=== PATIENT | female | born 1955 | race Caucasian/White ===

== ENCOUNTER → 2016-12-10 | Outpatient (CLI) | payer BC ==
[~2016-12-10] MED LIST: Calcium; Fish Oil; Juice Plus
[2016-12-10 14:37] VITALS: BP 105/67; PULSE 64; TEMP 36.6; O2SAT 98
--- NOTE | 2016-12-10 15:35 | Radiation Oncology Follow-Up ---
Radiation Oncology Follow-Up Date of Visit Dec 10, 2016. Reason For Visit Annual follow-up Radiation Completion Date 05/07/15 Diagnosis (1) Sarcoma Status: Resolved Onset Date: 12/20/2014 Location: left lower back Histology Subtype: high-grade pleomorphic sarcoma Stage: lll Permanent Comment: Mass left lower back Biopsy 12/10/2014 revealing sarcoma FNA left inguinal node 01/08/2015 benign Wide local excision 01/28/2015 High-grade pleomorphic sarcoma Pathologic stage [id number] Status post completion of radiation therapy 05/07/2015 received 6600 cGy Last Edited By: Lori Vargas on May 20, 2015 10:53 History of Present Illness Ms. Perkins is a 61-year-old female who noted the presence of a small lump in her left lower back. This was described as being the size of a dime. This initially presented as some soreness following exercising. She was seen by her family physician for a small lump that was felt to be compatible with a lipoma. She was a prior history of a lipoma on her left shoulder. She was referred to general surgery and was given the option of watchful waiting versus excision of the lesion. The patient initially chose to proceed with watchful waiting but felt after week or so that the lesion may be getting larger and she returned to see Dr. Mora. On 12/10/2014 a biopsy of a small lesion in the left lower back was performed. Multiple irregular round fragments of tissues were identified. The lesion was clinically described as a well circumscribed mass measuring 1.5 cm in the paraspinal region of the left lower back. The lesion was biopsied but not completely resected. The biopsy reported atypical cellular proliferation consistent with a sarcoma. Case: [id number]. This tissue was sent for a second opinion to [facility] and reported on 12/27/2014. This was described as an epithelioid malignant neoplasm incompletely excised. Pathology #: [id number]. 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 Reexcision was recommended. Patient underwent an MRI of the pelvis on 12/25/2014. This revealed a 2.3 cm soft tissue mass within the left gluteal region immediately posterior to the left SI joint. The lesion was located within the subcutaneous fat with slightly ill-defined margins and slight edema within the surrounding soft tissue. Patient was seen by Dr. Zapata on 12/26/2014 he ordered a PET/CT scan for staging performed on 01/02/2015. This revealed a 3.6 x 2.3 cm well-circumscribed solid mass lesion in the left pre-gluteal fat. This lesion was markedly FDG avid with a maximum SUV of 25.4. This was consistent with the patient's reported history of sarcoma. A mildly FDG avid left inguinal lymph node was seen with maximum SUV of 2.5 and measuring 0.9 x 1.6 cm. Mildly FDG avid left external iliac chain node with a maximum SUV of 2.6 measuring 1.4 x 0.6 cm was noted. A small FDG avid nodule in the left pelvis measured up to 0.7 cm and a maximum SUV of 2.9 was noted. 2 low attenuation hepatic lesions are identified. A 3.1 x 2.6 cm lesion seen in the right lobe and a 2.6 x 1.5 cm lesion in the inferior right lobe are seen but do not demonstrate FDG avidity and her therefore indeterminant. Dr. Zapata arrange for the patient to be seen in referral by Dr. Michael Jessica at [place]. She was seen on 01/04/2015. The patient noted increasing pain since the biopsy and was placed on Bactrim and without improvement a 10 day course of doxycycline and prednisone. Clinically a palpable lymph node was noted in the left inguinal crease. A 3 cm well-healed incision was noted in the left gluteal crease. The underlying mass was firm fixed attached superiorly and appeared to extend superiorly in the gluteal cleft. Because of the uncertainty of the left inguinal lymph node and the impact this could have on treatment options A lymph node biopsy was recommended. This was performed on 01/08/2015. A fine-needle aspiration biopsy was performed and was negative for malignant cells. Accession #: [id number]. This was performed under ultrasound guidance. The slides from [facility] were reviewed at [place] and reported on 01/28/2015. 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 Accession #: [id number]. Patient was seen by Dr. Rahel Lau for surgical evaluation.. The patient's case was presented at the sarcoma tumor Board. The recommendation was given the negative inguinal biopsy to proceed with a surgical resection. The surgery was scheduled for 01/28/2015. Dr. Jessica had noted that the lesion was still growing and appeared inflamed. He agreed with the recommendation of surgical excision followed by adjuvant radiation and consideration of adjuvant chemotherapy. On 01/28/2015 the patient underwent a wide local excision of a left back sarcoma with complex primary skin closure. A large fungating mass was excised to the level of the gluteus mayra fossa. The margins were close on gross evaluation and additional margins were sent. The final pathologic diagnosis remained a sarcoma with vascular differentiation. The submitted margins and subcutaneous tissues showed fibroadipose tissue with no pathologic alteration. The lesion measured 6.0 x 5.5 x 5.0 cm. The margins were negative for sarcoma. However the distance of sarcoma from the closest margin was 0.03 cm. This was the inferomedial margin. Other margins less than 2 cm with the superomedial margin. The mitotic rate was 14/10 high-powered reece. The histologic grade was 3. Necrosis was present involving 15% of the lesion. No lymphovascular invasion was identified. The stage was a pT2b pNx. Accession #: [id number]. The patient return to discuss the surgical findings with Dr. Lau on 02/08/2015. Adjuvant radiation was felt to be recommended and the patient was scheduled to see Dr. Jessica and Dr. Zapata. The patient had a local drain in place on February 10 the patient returned for evaluation and was admitted for IV clindamycin following concern over infection. Patient returned to the surgical oncology outpatient clinic on February 20. There remained greater than 30 mL drainage from the ASTER drain and it was recommended to leave it in place. Additional follow-up studies were recommended. On 02/26/2015 the patient returned to see Dr. Jessica to discuss adjuvant therapy. He recommended adjuvant radiation. A scalp lesion had been removed and was benign. They scheduled her for 3 month follow-up surveillance with repeat MRI of the pelvis and CT scan of the chest. We were asked to see the patient in referral at that time to discuss with her the role of adjuvant radiation. She was treated from 03/19/2015 to 05/07/2015. She received 6600 cGy. Interim History She describes a tightness in the area of previous surgery and radiation. She previously had physical therapy which greatly helped the mild discomfort that she was having. She does have stretching exercises but admits that she does not do these on a regular basis. She is followed closely by Dr. Rahel Lau. She stated she did have a bone marrow evaluation with Dr. Zambrano. There were findings of the previous radiation therapy. She is followed every 3-4 months with a recheck MRI of the pelvis and CT of the chest. She has been found to have pulmonary nodules. There are currently 3 nodules that are being followed. Her next CAT scan is on 01/08/2017. She'll also have a recheck MRI at that time and a recheck visit with Dr. Lau. She does not have any change in respiratory status. She does not have any problems with back pain or leg pain. She has no paresthesias or weakness of her left leg. Allergies Uncoded Allergies: PENNICILLIN (Allergy, Unknown, Red Rash, 12/26/14) SULFA (Allergy, Unknown, Unknown, 12/26/14) Home Medications Scheduled [Calcium], PRN [Fish Oil], PRN [Juice Plus], PRN Review of Systems Gastrointestinal: Symptoms: WNL Oral: Symptoms: No Problems Respiratory: Symptoms: WNL Urinary: Symptoms: WNL Comments: Urgency w/urination that she relates to aging and childbirth Skin: Symptoms: No Problems Other Skin Symptoms: resolving site sore from surgery, R/T, & PT to left lower back. Physical Exam Vital Signs Date Time Temp Pulse Resp B/P Pulse Ox O2 Delivery O2 Flow Rate FiO2 12/10/16 14:37 36.6 64 12 105/67 98 Pain: Pain Duration: Constant Side: Left Pain Location: None Patient Pain Scale: 0 - 10 Initial Pain Intensity: 0.0 Pain Description: Soreness Additional Comments: Admits to a sense of tightness in her left lower back; Fatigue: None General Appearance: no apparent distress Eyes: normal inspection, EOMI ENT: normal ENT inspection, hearing grossly normal Respiratory/Chest: lungs clear, no respiratory distress, no accessory muscle use Cardiovascular: regular rate, rhythm, no gallop, no murmur Abdomen: non tender, soft, no organomegaly Extremities: no pedal edema Neurologic/Psychiatric: no motor/sensory deficits, alert, normal mood/affect Skin: warm/dry Lymphatic: no adenopathy Additional Exam Notes: Back reveals postoperative changes left SI area. There is slight telangiectasis. There is no tenderness. There are no visible or palpable masses in this area. Additional Studies From the follow-up note of Dr. 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 The pelvis MRI showed stable post treatment changes in the surgical bed and surrounding musculature of the lower back without evidence of new or recurrent disease. Stable areas of abnormal marrow signal in the left posterior ileum likely postbiopsy changes and areas of osteonecrosis. Assessment & Plan Plan: We discussed resuming previously recommended exercises for her back which may help with the feeling of "tightness". She has a recheck appointment with Dr. Lau on 01/08/2017. At that time she'll have a recheck CT of the chest as well as MRI of the pelvis. These studies will be reviewed through the electronic medical record. We asked her to return to our office in 1 year. She may call if she has any questions or concerns in the interim. Total Time In Follow-Up I spent 15 minutes speak to the patient performing examination. I spent 15 minutes reviewing information in completing this note. Copy To Ciaran Marc M.D.; Rahel Lau M.D.; Ness Michael,C.R.N.P.
== END | disposition home or self-care (01) ==
LOC: C.ONC 14:18
PROVIDERS: ATTEND Radiology Radiation Oncology
DX: Z08 Encounter for follow-up examination after completed treatment for malignant neoplasm (principal); Z92.3 Personal history of irradiation; Z85.89 Personal history of malignant neoplasm of other organs and systems

== ENCOUNTER → 2017-01-28 | Outpatient (CLI) | payer BC ==
[2017-01-28 11:57] LABS: BASO % 0.2 %; BASO ABS # 0.01 K/uL (0-0.2); COMPLETE YES; EOS % 1.1 %; HEMATOCRIT 42.9 % (37-47); IG% 0.2 %; LYMPH ABS # 1.55 K/uL (1.2-3.4); MEAN CELL VOLUME 93.3 fL (80-100); MEAN CORPUSCULAR HEMOGLOBIN 30.9 pg (25-34); MEAN CORPUSCULAR HGB CONC 33.1 g/dl (32-36); MEAN PLATELET VOLUME 10.1 fL (7.4-10.4); MONO % 7.2 %; NEUT % 56.3 %; PLATELET COUNT 225 K/uL (130-400); WHITE BLOOD COUNT 4.43 K/uL (4.8-10.8)
[2017-01-28 12:19] LABS: ALT/SGPT 18 U/L (12-78); BLOOD UREA NITROGEN 9 mg/dl (7-18); BUN/CREATININE RATIO 9.9 (10-20); CALCIUM 9.9 mg/dl (8.5-10.1); CARBON DIOXIDE 27 mmol/L (21-32); CHLORIDE 107 mmol/L (98-107); CHOLESTEROL 255 mg/dl (0-200); CREATININE 0.93 mg/dl (0.60-1.20); GLUCOSE 89 mg/dl (70-99); POTASSIUM 3.9 mmol/L (3.5-5.1); SODIUM 143 mmol/L (136-145)
[2017-01-28 12:30] LABS: ALB/GLOB RATIO 1.3 (0.9-2); ALKALINE PHOSPHATASE 65 U/L (45-117); AST/SGOT 18 U/L (15-37); CHOLESTEROL/HDL RATIO 2.7; HDL CHOLESTEROL 94 mg/dl; LDL CHOLESTEROL CALCULATED 148 mg/dl; TRIGLYCERIDES 67 mg/dl (0-150); VERY LOW DENSITY LIPOPROT CALC 13 mg/dl
[2017-01-28 13:25] LABS: LYME DISEASE AB IGG NEG (NEG)
[2017-01-28 13:28] LABS: LYME DISEASE AB IGM NEG (NEG)
== END | disposition home or self-care (01) ==
LOC: C.LABPVFM 08:05
PROVIDERS: ATTEND Family Medicine
DX: F41.8 Other specified anxiety disorders (principal); R53.83 Other fatigue; E78.5 Hyperlipidemia, unspecified

== ENCOUNTER → 2017-04-06 | Outpatient (CLI) | payer BC | END | disposition home or self-care (01) | LOC: C.PAPS 11:40 | PROVIDERS: ATTEND Family Medicine | DX: Z00.00 Encounter for general adult medical examination without abnormal findings (principal); Z01.419 Encounter for gynecological examination (general) (routine) without abnormal findings ==

== ENCOUNTER → 2017-12-09 | Outpatient (CLI) | payer BC ==
[~2017-12-09] MED LIST changes: +CITA10TA4 PO
[2017-12-09 14:20] VITALS: BP 111/65; PULSE 82; O2SAT 100
--- NOTE | 2017-12-09 16:47 | Radiation Oncology Follow-Up ---
Radiation Oncology Follow-Up Date of Visit Dec 09, 2017. Reason For Visit Annual follow-up Radiation Completion Date 05/07/15 Diagnosis (1) Sarcoma Status: Resolved Onset Date: 12/20/2014 Location: left lower back Histology Subtype: high-grade pleomorphic sarcoma Stage: lll Permanent Comment: Mass left lower back Biopsy 12/10/2014 revealing sarcoma FNA left inguinal node 01/08/2015 benign Wide local excision 01/28/2015 High-grade pleomorphic sarcoma Pathologic stage [id number] Status post completion of radiation therapy 05/07/2015 received 6600 cGy Left iliac bone FNA 11/26/2015 osteopenia, negative for malignancy Last Edited By: Lori Vargas on Dec 09, 2017 16:40 History of Present Illness Ms. Perkins noted the presence of a small lump in her left lower back. This was described as being the size of a dime. This initially presented as some soreness following exercising. She was seen by her family physician for a small lump that was felt to be compatible with a lipoma. She was a prior history of a lipoma on her left shoulder. She was referred to general surgery and was given the option of watchful waiting versus excision of the lesion. The patient initially chose to proceed with watchful waiting but felt after week or so that the lesion may be getting larger and she returned to see Dr. Mora. On 12/10/2014 a biopsy of a small lesion in the left lower back was performed. Multiple irregular round fragments of tissues were identified. The lesion was clinically described as a well circumscribed mass measuring 1.5 cm in the paraspinal region of the left lower back. The lesion was biopsied but not completely resected. The biopsy reported atypical cellular proliferation consistent with a sarcoma. Case: [id number]. This tissue was sent for a second opinion to [facility] and reported on 12/27/2014. This was described as an epithelioid malignant neoplasm incompletely excised. Pathology #: [id number]. 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 Reexcision was recommended. Patient underwent an MRI of the pelvis on 12/25/2014. This revealed a 2.3 cm soft tissue mass within the left gluteal region immediately posterior to the left SI joint. The lesion was located within the subcutaneous fat with slightly ill-defined margins and slight edema within the surrounding soft tissue. Patient was seen by Dr. Zapata on 12/26/2014 he ordered a PET/CT scan for staging performed on 01/02/2015. This revealed a 3.6 x 2.3 cm well-circumscribed solid mass lesion in the left pre-gluteal fat. This lesion was markedly FDG avid with a maximum SUV of 25.4. This was consistent with the patient's reported history of sarcoma. A mildly FDG avid left inguinal lymph node was seen with maximum SUV of 2.5 and measuring 0.9 x 1.6 cm. Mildly FDG avid left external iliac chain node with a maximum SUV of 2.6 measuring 1.4 x 0.6 cm was noted. A small FDG avid nodule in the left pelvis measured up to 0.7 cm and a maximum SUV of 2.9 was noted. 2 low attenuation hepatic lesions are identified. A 3.1 x 2.6 cm lesion seen in the right lobe and a 2.6 x 1.5 cm lesion in the inferior right lobe are seen but do not demonstrate FDG avidity and her therefore indeterminant. Dr. Zapata arrange for the patient to be seen in referral by Dr. Michael Jessica at [place]. She was seen on 01/04/2015. The patient noted increasing pain since the biopsy and was placed on Bactrim and without improvement a 10 day course of doxycycline and prednisone. Clinically a palpable lymph node was noted in the left inguinal crease. A 3 cm well-healed incision was noted in the left gluteal crease. The underlying mass was firm fixed attached superiorly and appeared to extend superiorly in the gluteal cleft. Because of the uncertainty of the left inguinal lymph node and the impact this could have on treatment options A lymph node biopsy was recommended. This was performed on 01/08/2015. A fine-needle aspiration biopsy was performed and was negative for malignant cells. Accession #: [id number]. This was performed under ultrasound guidance. The slides from [facility] were reviewed at [place] and reported on 01/28/2015. 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 Accession #: [id number]. Patient was seen by Dr. Rahel Lau for surgical evaluation.. The patient's case was presented at the sarcoma tumor Board. The recommendation was given the negative inguinal biopsy to proceed with a surgical resection. The surgery was scheduled for 01/28/2015. Dr. Jessica had noted that the lesion was still growing and appeared inflamed. He agreed with the recommendation of surgical excision followed by adjuvant radiation and consideration of adjuvant chemotherapy. On 01/28/2015 the patient underwent a wide local excision of a left back sarcoma with complex primary skin closure. A large fungating mass was excised to the level of the gluteus mayra fossa. The margins were close on gross evaluation and additional margins were sent. The final pathologic diagnosis remained a sarcoma with vascular differentiation. The submitted margins and subcutaneous tissues showed fibroadipose tissue with no pathologic alteration. The lesion measured 6.0 x 5.5 x 5.0 cm. The margins were negative for sarcoma. However the distance of sarcoma from the closest margin was 0.03 cm. This was the inferomedial margin. Other margins less than 2 cm with the superomedial margin. The mitotic rate was 14/10 high-powered reece. The histologic grade was 3. Necrosis was present involving 15% of the lesion. No lymphovascular invasion was identified. The stage was a pT2b pNx. Accession #: [id number]. The patient return to discuss the surgical findings with Dr. Lau on 02/08/2015. Adjuvant radiation was felt to be recommended and the patient was scheduled to see Dr. Jessica and Dr. Zapata. The patient had a local drain in place on February 10 the patient returned for evaluation and was admitted for IV clindamycin following concern over infection. Patient returned to the surgical oncology outpatient clinic on February 20. There remained greater than 30 mL drainage from the ASTER drain and it was recommended to leave it in place. Additional follow-up studies were recommended. On 02/26/2015 the patient returned to see Dr. Jessica to discuss adjuvant therapy. He recommended adjuvant radiation. A scalp lesion had been removed and was benign. They scheduled her for 3 month follow-up surveillance with repeat MRI of the pelvis and CT scan of the chest. We were asked to see the patient in referral at that time to discuss with her the role of adjuvant radiation. She was treated from 03/19/2015 to 05/07/2015. She received 6600 cGy. Interim History She's been doing well over the past year. She has some mild discomfort in the lower back. There is also a tightness. By exercising and stretching regularly this is improved. She continues close follow-up by Dr. Rahel Lau. She has had recheck MRIs. She also is having recheck CTs of the chest for pulmonary nodularity. She had a recheck MRI of the pelvis 01/08/2017. This showed stable posttreatment changes in the surgical bed and surrounding musculature of the lower back without evidence of new or recurrent disease. Stable areas of abnormal marrow signal in the left posterior ileum likely postbiopsy changes and areas of osteonecrosis. She had a MRI of the pelvis 10/08/2017. This showed stable postsurgical changes in the left lower back. No disease recurrence to the pelvis. Normal bone marrow signal. Allergies Uncoded Allergies: PENNICILLIN (Allergy, Unknown, Red Rash, 12/26/14) SULFA (Allergy, Unknown, Unknown, 12/26/14) Home Medications Scheduled Citalopram Hydrobromide (Citalopram Hydrobromide), 1 TAB PO DAILY [Calcium], PRN [Fish Oil], PRN [Juice Plus], PRN Review of Systems Gastrointestinal: Symptoms: WNL Oral: Symptoms: No Problems Respiratory: Symptoms: WNL Urinary: Symptoms: WNL Skin: Symptoms: No Problems Other Skin Symptoms: "skin is different" - numbness since surgery Physical Exam Vital Signs Date Time Temp Pulse Resp B/P (MAP) Pulse Ox O2 Delivery O2 Flow Rate FiO2 12/09/17 14:20 82 16 111/65 100 Fatigue: None General Appearance: no apparent distress Eyes: normal inspection, EOMI ENT: normal ENT inspection, hearing grossly normal Neck: no adenopathy, thyroid normal Respiratory/Chest: lungs clear, no respiratory distress, no accessory muscle use Cardiovascular: regular rate, rhythm, no gallop, no murmur Abdomen: non tender, soft, no organomegaly Extremities: no pedal edema Neurologic/Psychiatric: no motor/sensory deficits, alert, normal mood/affect Skin: warm/dry Additional Exam Notes: Left lower back reveals postoperative changes with well-healed incision. There is overlying telangiectasia. There are no masses or tenderness Pain Management Patient Reports Pain: No Initial Pain Intensity: 0.0 Pain Management Plan She denies pain therefore requires no pain management. Laboratory Laboratory Results: not applicable Pathology Pathology Results: not applicable Imaging Imaging Studies: were reviewed Imaging Comments Reviewed in the interim history. She also is being followed in regards to pulmonary nodules. She had a CT of the chest 04/07/2017 which showed slight increase in tree in blood nodularity in the right upper lobe centri lobular distribution. This finding suggests a subacute inflammatory/infectious process. Assessment & Plan Plan: Continue regular follow-up with recheck MRIs and CTs. These are scheduled through Dr. Lau's office. She also recheck appointment in April. A follow-up appointment with our office was not given. She had asked to discontinue follow-up from radiation therapy. She is having regular visits and imaging in [place]. We did ask her to call our office if she has any questions or concerns we would be happy to see her. We also reviewed today the telangiectasia as a later side effect of radiation therapy. Total Time In Follow-Up I spent 20 minutes speaking to the patient performing examination I spent 15 minutes reviewing information in completing this note. Copy To Alfred Thomas M.D.; Rahel Lau M.D.
== END | disposition home or self-care (01) ==
LOC: C.ONC 14:11
PROVIDERS: ATTEND Physician Assistant Medical
DX: Z08 Encounter for follow-up examination after completed treatment for malignant neoplasm (principal); Z92.3 Personal history of irradiation; Z85.89 Personal history of malignant neoplasm of other organs and systems

== ENCOUNTER 2024-11-30 16:01 | Inpatient (IN) ==
--- NOTE | 2024-11-30 17:00 | XRay Report ---
Clinical History: Cough Technique: A frontal view of the chest was obtained Findings: There is extensive right lower lobe alveolar consolidation. There are less severe patchy right upper lobe and left lower lobe infiltrates. There is a suspected small right pleural effusion. The heart size is within normal limits. No left pleural effusion or pneumothorax is seen. No fracture is noted. No foreign body is seen Impression: 1. Right worse then left pneumonia 2. Small right pleural effusion Electronically signed by Armando Graf 11-30-2024 4:59 PM
[2024-11-30 17:01] LABS: Hematocrit (blood only) 40.6 % (37.0-47.0); Hemoglobin 13.2 g/dl (12.0-16.0); Mean Corpuscular Hemoglobin 30.1 pg (25.0-34.0); Mean Corpuscular Hgb Conc 32.5 g/dL (32.0-36.0); Mean Corpuscular Volume 92.5 fL (80.0-100.0); Mean Platelet Volume 9.5 fL (9.4-12.4); Platelet Count 186 K/uL (130-400); RDW Coefficient of Variation 14.8 % (11.5-14.5); RDW Standard Deviation 50.4 fL (36.4-46.3); Red Blood Count 4.39 M/uL (4.20-5.40); White Blood Count 5.46 K/ul (4.8-10.8)
[2024-11-30 17:02] LABS: Basophils # (auto) 0.03 K/uL (0.00-0.20); Basophils % (auto) 0.5 %; Immature Granulocytes # (auto) 0.05 K/uL (0.01-0.20); Immature Granulocytes % (auto) 0.9 %; Lymphocytes # (auto) 0.81 K/uL (1.20-3.40); Lymphocytes % (auto) 14.8 %; Monocytes # (auto) 0.13 K/uL (0.11-0.59); Monocytes % (auto) 2.4 %; Neutrophils # (auto) 4.44 K/uL (1.40-6.50); Neutrophils % (auto) 81.4 %
[2024-11-30 17:05] LABS: Albumin Globulin Ratio 1.2 (0.9-2); Albumin Level 3.6 gm/dl (3.4-5.0); BUN Creatinine Ratio 18.5 (10-20); Bilirubin,Total 0.6 mg/dl (0.2-1.0); Creatinine Clr Calc Pharmacy 32.5 ml/min; Globulin 3.1 gm/dl (2.5-4.0); Potassium 3.9 mmol/L (3.5-5.1); Total Protein 6.7 gm/dl (6.0-8.3)
--- NOTE | 2024-11-30 17:10 | Emergency Department Note ---
Impression & Plan Pneumonia, Acidosis, lactic, Influenza A ED Provider Note NAME: ADELE WADE AGE: 69 SEX: F : 1955 ARRIVES VIA: Ambulance INFORMANT: Patient, ED PROVIDER(S): Xander Moss DO CHIEF COMPLAINT: Shortness of breath HPI: The patient is a 69-year-old female who presented to the emergency department directly from her primary care physician's office for an evaluation of cough and shortness of breath. The patient states that she has had a few infections over the course of the last few months. This 1 began last Wednesday. The patient's had cough and fever. She has had decreased activity. When she was seen in the office she was hypoxic and her blood pressure was not normal so she was sent to the emergency room by ambulance for further evaluation. ROS: See above HPI for pertinent positives & negatives. A total of 10 systems reviewed and were otherwise negative. PAST MEDICAL HISTORY: See Below PAST SURGICAL HISTORY: See Below FAMILY HISTORY: See Below SOCIAL HISTORY: See Below HOME MEDICATIONS: See Below ALLERGIES: See Below VITALS: See Below PHYSICAL EXAMINATION: GENERAL: Patient is awake alert in no acute distress patient is resting comfortably and showing no signs of anxiety EYES: The conjunctivae are clear. The pupils are round and reactive. EARS, NOSE, MOUTH AND THROAT: The nose is without any evidence of any deformity. NECK: The neck is nontender and supple. RESPIRATORY: Diminished breath sounds are noted at the right lung field. There were rales all throughout the lower lung field. There is mild tachypnea. CARDIOVASCULAR: Regular rate and rhythm noted there no murmurs rubs or gallops normal S1 normal S2. GASTROINTESTINAL: The abdomen is soft. Abdomen is nontender. MUSCULOSKELETAL/EXTREMITIES: There is no evidence of gross deformity full range of motion is noted in the hips and shoulders. SKIN: There is no obvious evidence of any rash. There are no petechiae, pallor or cyanosis noted. NEUROLOGIC: Patient is awake alert and oriented x3. MEDICAL DECISION MAKING: The patient is a 69-year-old female who presented to the emergency department for an evaluation of cough and difficulty breathing. The patient initially went to her primary care physician but was sent to the emergency department immediately because of hypoxia and hypotension. The patient has abnormal lung sounds in the right lung field. Chest x-ray confirms pneumonia. The patient was treated with IV fluids and IV antibiotics in the emergency department. The patient was reevaluated multiple times. I discussed the patient's laboratory and radiographic studies with her. Her workup would be consistent with somebody requiring inpatient management. I [facility] her [facility] They have agreed to evaluate the patient in the emergency department. Triage Nursing notes reviewed. Prior medical records reviewed Vital Signs: reviewed and remarkable for no significant abnormalities Differential diagnosis: Viral syndrome, otitis, pharyngitis, pneumonia, influenza, meningitis, urinary tract infection, sepsis, bacteremia, as well as other pathologies. ER treatment provided: See below Diagnostics interpreted by me: ECG: EKG was obtained in the emergency department. My interpretation is normal sinus rhythm at 97 bpm. There is no ectopy. Incomplete right bundle-branch block pattern was noted. Cardiac Monitoring: An order was placed for continuous cardiac monitoring. The monitor shows a rate of 87 bpm with sinus rhythm. Laboratory studies: As stated above and show below. Imaging studies: See below. Radiographic imaging was reviewed by myself Consultation(s): I discussed this case with Dr. Rollins who is on-call for the [facility]. 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 02-27-20 - surgery History of Surgically induced Family History Mother Cardiac disorder Hypertension Stroke Grandfather (Maternal) Family history of diabetes mellitus Other No family history of adverse response to anesthesia Denies family history of H/O complications due to general anesthesia Ovarian cancer Prostate cancer Myocardial infarction Breast cancer Bleeding disorder Colorectal cancer Social History Smoking Status: Never smoker Second Hand Exposure: No; Do You Dip or Chew Tobacco: No; Hx Alcohol Use: No Hx Substance Use: No Preferred Language: Ukrainian Communication Ability: Effective Visual Impairment: No Limitations Hearing Ability: Normal Security Manager Required: No Beliefs That Will Affect Care: None marital status: Current Living Situation: Spouse Current Living Situation Comment: Lives with and son current occupational status: retired How many Children do You have: 3 Feels Safe at Home: Yes Childhood Exposure to Second-Hand Smoke: No Diet: regular caffeine: Yes (Coffee) during the past year weight has: remained stable Dental Care, Regularly: Yes Physical Activity Frequency: Daily Seatbelt Use: always Sunscreen Use: Yes Do you think of yourself as: straight/heterosexual Gender Identity: Female Assistive Devices: Glasses Allergies Allergies Allergy/AdvReac Type Severity Reaction Status Date / Time No Known Drug Allergies Allergy Verified 11/30/24 14:44 Home Meds Home Medications Medication Instructions Recorded Confirmed cholecalciferol (vitamin D3) 50 2,000 unit PO QAM #30 caps 07/13/19 11/30/24 mcg (2,000 unit) capsule calcium 100 mg capsule 100 mg PO QAM 03/29/24 11/30/24 Previous Rx's Medication Instructions Recorded citalopram 10 mg tablet 10 mg PO QAM #90 tabs 01/28/24 Results & Data (ED) Vital Signs Vital Signs - 24 hr 11/30/24 16:22 11/30/24 16:43 11/30/24 16:43 Temperature 36.9 C Temperature Source Temporal Artery Scan Pulse Rate 96 H Pulse Rate [Left Finger] Pulse Rhythm [Left Finger] Pulse Strength [Left Finger] Respiratory Rate 16 Respiratory Effort / Characteristics Non-Labored Non-Labored Spontaneous Respiratory Depth Normal Normal Respiratory Pattern Blood Pressure 116/57 L Blood Pressure [Left Arm] Blood Pressure Mean 76 Blood Pressure Mean [Left Arm] Blood Pressure Position [Left Arm] Pulse Oximetry 90 Oxygen Delivery Method Room Air Room Air Sepsis Recent Fever Within 48 Hours No Sepsis New/Unexplained Change in Mental Status No Sepsis Action Taken by Nursing No Action Required 11/30/24 17:39 11/30/24 17:45 11/30/24 18:43 Temperature Temperature Source Pulse Rate 95 H Pulse Rate [Left Finger] 97 H 92 H Pulse Rhythm [Left Finger] Regular Pulse Strength [Left Finger] Normal Respiratory Rate 22 24 Respiratory Effort / Characteristics Non-Labored Spontaneous Respiratory Depth Normal Respiratory Pattern Regular Blood Pressure Blood Pressure [Left Arm] 140/73 145/61 H Blood Pressure Mean Blood Pressure Mean [Left Arm] 95 89 Blood Pressure Position [Left Arm] Pulse Oximetry 93 94 Oxygen Delivery Method Room Air Room Air Sepsis Recent Fever Within 48 Hours Sepsis New/Unexplained Change in Mental Status Sepsis Action Taken by Nursing 11/30/24 19:17 Temperature 36.7 C Temperature Source Oral Pulse Rate Pulse Rate [Left Finger] 87 Pulse Rhythm [Left Finger] Regular Pulse Strength [Left Finger] Normal Respiratory Rate 22 Respiratory Effort / Characteristics Non-Labored Respiratory Depth Normal Respiratory Pattern Regular Blood Pressure Blood Pressure [Left Arm] 141/73 H Blood Pressure Mean Blood Pressure Mean [Left Arm] 95 Blood Pressure Position [Left Arm] Sitting Pulse Oximetry 94 Oxygen Delivery Method Room Air Sepsis Recent Fever Within 48 Hours Sepsis New/Unexplained Change in Mental Status Sepsis Action Taken by [place] Medications Current Medication List: was personally reviewed by me Laboratory Data Attestation: I reviewed the patient's lab results. 11/30/24 16:31 11/30/24 16:31 Lab Results 11/30/24 11/30/24 11/30/24 Range/Units 16:31 16:37 17:36 WBC 5.46 (4.8-10.8) K/ul RBC 4.39 (4.20-5.40) M/uL Hgb 13.2 (12.0-16.0) g/dl Hct 40.6 (37.0-47.0) % MCV 92.5 (80.0-100.0) fL MCH 30.1 (25.0-34.0) pg MCHC 32.5 (32.0-36.0) g/dL RDW Std Deviation 50.4 H (36.4-46.3) fL RDW Coeff of Santi 14.8 H (11.5-14.5) % Plt Count 186 (130-400) K/uL MPV 9.5 (9.4-12.4) fL Immature Gran % (Auto) 0.9 % Neut % (Auto) 81.4 % Lymph % (Auto) 14.8 % [place] % (Auto) 2.4 % Eos % (Auto) 0.0 % Baso % (Auto) 0.5 % Neut # (Auto) 4.44 (1.40-6.50) K/uL Lymph # (Auto) 0.81 L (1.20-3.40) K/uL [place] # (Auto) 0.13 (0.11-0.59) K/uL Eos # (Auto) 0.00 (0.00-0.50) K/uL Baso # (Auto) 0.03 (0.00-0.20) K/uL Immature Gran # (Auto) 0.05 (0.01-0.20) K/uL Sodium 133 L (136-145) mmol/L Potassium 3.9 (3.5-5.1) mmol/L Chloride 95 L (98-107) mmol/L Carbon Dioxide 26 (21-32) mmol/L Anion Gap 12 H (3-11) BUN 25 H (6-23) mg/dl Creatinine 1.35 H (0.6-1.2) mg/dl Est Cr Clr Drug Dosing 32.5 ml/min eGFR 42.54 BUN/Creatinine Ratio 18.5 (10-20) Glucose 157 H (70-99(Fasting)) mg/dl Lactate 3.8 H* (0.4-2.0) mmol/L Calcium 9.0 (8.6-10.3) mg/dl Total Bilirubin 0.6 (0.2-1.0) mg/dl AST 33 (13-39) U/L ALT 30 (7-52) U/L Alkaline Phosphatase 52 (34-104) U/L C-Reactive Protein 36.56 H (0-0.5) mg/dl Total Protein 6.7 (6.0-8.3) gm/dl Albumin 3.6 (3.4-5.0) gm/dl Globulin 3.1 (2.5-4.0) gm/dl Albumin/Globulin Ratio 1.2 (0.9-2) Procalcitonin 17.80 H (0-0.5) ng/ml Adenovirus (PCR) Not Detected (NotDetected) B. pertussis DNA (PCR) Not Detected (NotDetected) B.parapertussis DNA PCR Not Detected (NotDetected) C. pneumoniae DNA (PCR) Not Detected (NotDetected) Coronavirus OC43 (PCR) Not Detected (NotDetected) Coronavirus HKU1 (PCR) Not Detected (NotDetected) Coronavirus 229E (PCR) Not Detected (NotDetected) SARS-CoV-2 (PCR) Not Detected (NotDetected) Coronavirus NL63 (PCR) Not Detected (NotDetected) Human Metapneumovir PCR Not Detected (NotDetected) Influenza A (H3) PCR DETECTED A (NotDetected) Influenza Type B (PCR) Not Detected (NotDetected) M. pneumoniae (PCR) Not Detected (NotDetected) Parainfluenza 1 (PCR) Not Detected (NotDetected) Parainfluenza 2 (PCR) Not Detected (NotDetected) Parainfluenza 3 (PCR) Not Detected (NotDetected) Parainfluenza 4 (PCR) Not Detected (NotDetected) RSV (PCR) Not Detected (NotDetected) Entero/Rhino (PCR) Not Detected (NotDetected) Administered Medications Discontinued Medications Ceftriaxone Sodium (Rocephin) 2,000 mg in 50 mls @ 100 mls/hr IV NOW STA Stop: 11/30/24 17:30 Last Infusion: 11/30/24 18:21 Dose: Infused Documented By: Admin: 11/30/24 17:43 Dose: 100 mls/hr Documented By: SHARATH Sodium Chloride (Nss) 1,000 mls @ 999 mls/hr IV .Q1H1M ONE Stop: 11/30/24 18:01 Last Infusion: 11/30/24 18:57 Dose: Infused Documented By: Admin: 11/30/24 17:43 Dose: 999 mls/hr Documented By: SHARATH Sodium Chloride (Nss) 1,000 mls @ 999 mls/hr IV .Q1H1M ONE Stop: 11/30/24 18:52 Last Admin: 11/30/24 19:05 Dose: 999 mls/hr Documented By: NRB Imaging Data Attestation: I personally reviewed and interpreted this imaging study as follows: My Impression: 1 view chest x-ray was obtained in the emergency department. My interpretation is right-sided infiltrate, final report below. Radiologist's Impression: Chest X-Ray 11/30/24 16:26 Clinical History: Cough Technique: A frontal view of the chest was obtained Findings: There is extensive right lower lobe alveolar consolidation. There are less severe patchy right upper lobe and left lower lobe infiltrates. There is a suspected small right pleural effusion. The heart size is within normal limits. No left pleural effusion or pneumothorax is seen. No fracture is noted. No foreign body is seen Impression: 1. Right worse then left pneumonia 2. Small right pleural effusion Electronically signed by Armando Graf 11-30-2024 4:59 PM Discharge Plan Visit Data Chief Complaint: Illness Stated Complaint: SINUS INFECTION, HYPOTENSION ED Provider: Xander Moss Discharge Problem: Pneumonia, Acidosis, lactic, Influenza A Patient Disposition: Being Evaluated by Hospitalist Forms Stand Alone Forms: My [facility] Prescriptions Prescriptions: No Action citalopram 10 mg tablet 10 mg PO QAM Qty: 90 3RF cholecalciferol (vitamin D3) 2,000 unit capsule 2,000 unit PO QAM Qty: 30 ipratropium-albuterol 0.5 mg-3 mg(2.5 mg base)/3 mL solution for nebulization 3 ml inhalation ONCE Qty: 3 0RF calcium 100 mg Capsule 100 mg PO QAM Referrals Referrals: Livan Laguna DO [Primary Care Provider] - Discharge Problem: Pneumonia Qualifiers: Pneumonia type: due to unspecified organism Laterality: bilateral Lung location: unspecified part of lung Qualified Code(s): J18.9 - Pneumonia, unspecified organism
[2024-11-30 17:34] LABS: Adenovirus PCR Not Detected (NotDetected); Bordetella parapertussis PCR Not Detected (NotDetected); Bordetella pertussis PCR Not Detected (NotDetected); Chlamydia pneumoniae PCR Not Detected (NotDetected); Coronavirus 229E PCR Not Detected (NotDetected); Coronavirus CoV-2 (COVID19)PCR Not Detected (NotDetected); Coronavirus HKU1 PCR Not Detected (NotDetected); Coronavirus NL63 PCR Not Detected (NotDetected); Coronavirus OC43PCR Not Detected (NotDetected); Human Metapneumovirus PCR Not Detected (NotDetected); Influenza A (H3) PCR DETECTED (NotDetected); Influenza B PCR Not Detected (NotDetected); Mycoplasma pneumoniae PCR Not Detected (NotDetected); Parainfluenza Virus 1 PCR Not Detected (NotDetected); Parainfluenza Virus 2 PCR Not Detected (NotDetected); Parainfluenza Virus 3 PCR Not Detected (NotDetected); Parainfluenza Virus 4 PCR Not Detected (NotDetected); Respiratory Syncytial VirusPCR Not Detected (NotDetected); Rhinovirus/Enterovirus PCR Not Detected (NotDetected)
[2024-11-30 17:38] LABS: C Reactive Protein 36.56 mg/dl (0-0.5)
[2024-11-30] MEDS: SODIUM CHLORIDE 0.9% 1,000 ML IV ONE ×2 (17:43→19:05)
[2024-11-30] MEDS: cefTRIAXone SODIUM 2,000 MG/50 ML BAG IV STA (17:43)
[2024-11-30] MEDS ORDERED: VANCOMYCIN HCL IV ONE (17:52)
[2024-11-30] MEDS ORDERED: VANCOMYCIN CONSULT ACTIVE PRN (17:52)
[2024-11-30] MEDS ORDERED: SODIUM CHLORIDE 0.9% IV ONE (17:52)
--- NOTE | 2024-11-30 18:04 | History & Physical Report ---
Date of Service November 30, 2024 Assessment & Plan (1) Multifocal pneumonia: Plan: Gladys is a 69-year-old female who is admitted for multifocal pneumonia. She has had 3 URIs in the last 2 months, however most recent course had sudden worsening to 3 days ago no suspicious for superimposed bacterial pneumonia on top of flu A. She has a marked elevation in her CRP and procalcitonin and while on admission is not toxic or hypotensive appears fatigued and ill. Multifocal pneumonia, secondary bacterial pneumonia, flu A Chest x-ray: Right worse than left pneumonia. Small right pleural effusion. Multiple airspace opacities for which 4 to 6-week follow-up after treatment is recommended ensure resolution Leukocytosis is not present Procalcitonin 17.8, flu a positive, CRP 36 Borderline O2 saturation on room air. Titrate to goal 90% Given associated effusion, multifocal suspected superimposed bacterial pneumonia agree with vancomycin coverage for now. MRSA nare ordered, if this is negative then can discontinue Vanco. Sputum culture ordered Steroids deferred Borderline sepsis criteria. She denies have a leukocytosis or fever at time of assessment. Heart rate has been elevated and respiratory with 1 rate of 20 on review. S 30 cc/kg of fluids would target approximately 1500 cc and she has received 2 L. She has received appropriate antibiotics. Lactate is pending. She is clinically improving and blood cultures are pending. Continue incentive spirometry DORYS Baseline creatinine approximately 0.80.97 Creatinine 1.35 on admission Patient's received 2 L NSS Trend daily Avoid nephrotoxins Encourage p.o. Chronic stable issues: Anxiety/depression: Continue Celexa DVT prophylaxis: Heparin due to DORYS, switch to Lovenox if renal function normalizes CODE STATUS: Full code Disposition: MSO Diet: Regular (2) Influenza A: (3) Hyperlipidemia: History of Present Illness Primary Care Provider: Livan Laguna, 3 URIs in the last 2 months 1st was 2 months ago. Improved after doxycycline 2nd was amonth ago, improved without abx Current episode worse last 2-3 days and she has a temperature/fever and sore throat for the first time. +thick green sputum production last 2 days No night sweats +dyspnea +sinus congestion no nausea/vomiting/diarrhea Decongestants OTC have helped a little Medical History: Reviewed Medications: Reviewed Surgical History: Reviewed Family history: Reviewed Allergies: Reviewed Social History: No tobacco use. No etoh use Code Status:Surrogate DM would be Cristian. Full Code Allergies Allergy/AdvReac Type Severity Reaction Status Date / Time No Known Drug Allergies Allergy Verified 11/30/24 14:44 Home Medications Medication Instructions Recorded Confirmed Type cholecalciferol (vitamin D3) 50 2,000 unit PO QAM #30 caps 07/13/19 11/30/24 History mcg (2,000 unit) capsule citalopram 10 mg tablet 10 mg PO QAM #90 tabs 01/28/24 11/30/24 Rx calcium 100 mg capsule 100 mg PO QAM 03/29/24 11/30/24 History Past Med/Surg History Problem List (Updated 11/30/24 @ 18:02 by Hunter Duarte MD) Influenza A Multifocal pneumonia History of colon polyps Ceruminosis FHx: melanoma Mother had melanoma Hypertrophy of inferior nasal turbinate Osteopenia Acute sinusitis Bilateral cataracts Low back pain Allergic rhinitis (Acute) Hair loss (Acute) Hyperlipidemia (Acute) Multiple lipomas (Acute) Multiple pulmonary nodules (Acute) Vitamin D deficiency (Acute) Depression Medical History Osteopenia Allergic rhinitis Hx of hyperlipidemia no meds Vitamin D deficiency 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 02-27-20 - surgery History of Surgically induced Family History Mother Cardiac disorder Hypertension Stroke Grandfather (Maternal) Family history of diabetes mellitus Other No family history of adverse response to anesthesia Denies family history of H/O complications due to general anesthesia Ovarian cancer Prostate cancer Myocardial infarction Breast cancer Bleeding disorder Colorectal cancer Social History Smoking Status: Never smoker Second Hand Exposure: No; Do You Dip or Chew Tobacco: No; Hx Alcohol Use: No Hx Substance Use: No Preferred Language: Japanese Communication Ability: Effective Visual Impairment: No Limitations Hearing Ability: Normal Commercial Sales Representative Required: No Beliefs That Will Affect Care: None marital status: Current Living Situation: Spouse Current Living Situation Comment: Lives with and son current occupational status: retired How many Children do You have: 3 Feels Safe at Home: Yes Childhood Exposure to Second-Hand Smoke: No Diet: regular caffeine: Yes (Coffee) during the past year weight has: remained stable Dental Care, Regularly: Yes Physical Activity Frequency: Daily Seatbelt Use: always Sunscreen Use: Yes Do you think of yourself as: straight/heterosexual Gender Identity: Female Assistive Devices: Glasses Physical Exam Physical Exam: General: A&Ox3. NAD. Cooperative. Appears fatigued and ill but nontoxic HEENT: Atraumatic, normocephalic. Vision/hearing intact Pulm: Diffusely coarse. Symmetrical chest rise. No increased work of breathing. No respiratory distress. Cardiac: RRR, -mrg. Radial pulses intact and symmetrical. Abdomen: Soft, nontender Results & Data Results & Data Vital Signs (Past 12 Hours) Vital Signs Temp Pulse Pulse Resp BP BP Pulse Ox 11/30/24 17:45 97 H 22 140/73 93 11/30/24 17:39 95 H 11/30/24 16:43 11/30/24 16:22 36.9 C 96 H 16 116/57 L 90 O2 Del Method 11/30/24 17:45 Room Air 11/30/24 17:39 11/30/24 16:43 Room Air 11/30/24 16:22 Room Air PG Care Time/CCT Total # of Minutes Spent Total Time Spent with Patient: Total time spent is greater than 50% in coordination of care (as documented) at patient's floor/unit and/or counseling patient: Coding Level of Care Code 70263 INT INP/OBS CARE 3/75MIN Diagnoses Multifocal pneumonia J18.9 Influenza A J10.1 Hyperlipidemia E78.5
[2024-11-30] MEDS ORDERED: ALBUT/IPRATROP 3MG/0.5MG NEB 3 ML VIAL NEB PRN (18:06)
[2024-11-30] MEDS: ACETAMINOPHEN 500 MG TAB PO STA (20:00)
[2024-11-30] MEDS: VANCOMYCIN HCL 1,250 MG in SODIUM CHLORIDE 0.9% 250 ML IV ONE (20:20)
[2024-11-30] MEDS: PLASMA-LYTE A 1,000 ML IV ONE (21:25)
[2024-11-30] MEDS: HEPARIN SOD 5,000 UNIT/0.5 ML VIAL SQ SCH (21:31)
[2024-11-30] MEDS: BENZONATATE 100 MG CAPSULE PO PRN (22:44)
[2024-12-01 07:07] LABS: Hematocrit (blood only) 35.4 % (37.0-47.0); Hemoglobin 11.7 g/dl (12.0-16.0); Mean Corpuscular Hgb Conc 33.1 g/dL (32.0-36.0); Mean Corpuscular Volume 93.7 fL (80.0-100.0); Mean Platelet Volume 10.1 fL (9.4-12.4); Platelet Count 176 K/uL (130-400); RDW Coefficient of Variation 15.2 % (11.5-14.5); RDW Standard Deviation 52.2 fL (36.4-46.3); Red Blood Count 3.78 M/uL (4.20-5.40); White Blood Count 5.25 K/ul (4.8-10.8)
[2024-12-01 07:08] LABS: Basophils # (auto) 0.04 K/uL (0.00-0.20); Basophils % (auto) 0.8 %; Dohle Bodies 1+; Immature Granulocytes # (auto) 0.01 K/uL (0.01-0.20); Immature Granulocytes % (auto) 0.2 %; Lymphocytes # (auto) 0.55 K/uL (1.20-3.40); Lymphocytes % (auto) 10.5 %; Monocytes % (auto) 1.9 %; Neutrophils # (auto) 4.55 K/uL (1.40-6.50); Neutrophils % (auto) 86.6 %; Polychromasia 1+
[2024-12-01 07:14] LABS: BUN Creatinine Ratio 17.3 (10-20); C Reactive Protein 35.96 mg/dl (0-0.5); Calcium 8.6 mg/dl (8.6-10.3); Creatinine Clr Calc Pharmacy 58.3 ml/min
[2024-12-01 08:17] LABS: Toxic Vacuolation 1+
[2024-12-01] MEDS: CITALOPRAM 20 MG TAB PO SCH (08:29)
[2024-12-01] MEDS: ACETAMINOPHEN 325 MG TAB PO PRN (08:30)
[2024-12-01 09:07] LABS: A calco-baum cmplx NotReported Not Detected (NotDetected); Bact fragilis Not Reported Not Detected (NotDetected); Blood Culture Id Panel See PCR Comment (NotDetected); C auris Not Reported Not Detected (NotDetected); Calbicans Not Reported Not Detected (NotDetected); Candida glabrata Not Reported Not Detected (NotDetected); Candida krusei Not Reported Not Detected (NotDetected); Cneoformans/gatti Not Reported Not Detected (NotDetected); Cparapsilosis Not Reported Not Detected (NotDetected); E cloacae compx Not Reported Not Detected (NotDetected); Efaecalis Not Reported Not Detected (NotDetected); Efaecium Not Reported Not Detected (NotDetected); Enterobacterales Not Reported Not Detected (NotDetected); Escherichia coli Not Reported Not Detected (NotDetected); H influenzae Not Reported Not Detected (NotDetected); K aerogenes Not Reported Not Detected (NotDetected); Koxytoca Not Reported Not Detected (NotDetected); Kpneumoniae grp Not Reported Not Detected (NotDetected); Lmonocyt Not Reported Not Detected (NotDetected); N meningitidis Not Reported Not Detected (NotDetected); P aeruginosa Not Reported Not Detected (NotDetected); Proteus spp Not Reported Not Detected (NotDetected); Salmonella spp Not Reported Not Detected (NotDetected); Staph lugdunensis Not Reported Not Detected (NotDetected); Staph spp. Not Reported Not Detected (NotDetected); Staphaureus Not Reported Not Detected (NotDetected); Staphepi Not Reported Not Detected (NotDetected); Stenmaltophilia Not Reported Not Detected (NotDetected); Strep agal(GrpB) Not Reported Not Detected (NotDetected); Strep pneum Not Reported DETECTED (NotDetected); Strep pyog (GrpA) Not Reported Not Detected (NotDetected); Strep spp Not Reported DETECTED (NotDetected); Streptococcus spp DETECTED (NotDetected)
[2024-12-01 09:28] LABS: Streptococcus pneumoniae DETECTED (NotDetected)
[2024-12-01] MEDS: KETOROLAC TROMETHAMINE 15 MG/ML VIAL IV ONE (09:30)
--- NOTE | 2024-12-01 11:54 | Hospitalist Progress Note ---
Date of Service December 01, 2024 Assessment & Plan (1) Multifocal pneumonia: Plan: Gladys is a 69-year-old female who is admitted for multifocal pneumonia. She has had 3 URIs in the last 2 months, however most recent course had sudden worsening to 3 days ago no suspicious for superimposed bacterial pneumonia on top of flu A. She has a marked elevation in her CRP and procalcitonin and while on admission is not toxic or hypotensive appears fatigued and ill. Multifocal pneumonia -secondary Strep PNA and flu A Chest x-ray: Right worse than left pneumonia. Small right pleural effusion. Multiple airspace opacities for which 4 to 6-week follow-up after treatment is recommended ensure resolution Procalcitonin 17.8, flu a positive, CRP 36 -Biofire positive for Infu A and Strep PNA -MRSA nares was negative, discontinue vancomycin -Continue Ceftriaxone and Doxycycline Continue incentive spirometry DORYS Baseline creatinine approximately 0.80.97 Creatinine 1.35 on admission Patient's received 2 L NSS Trend daily Avoid nephrotoxins Encourage p.o. Chronic stable issues: Anxiety/depression: Continue Celexa DVT prophylaxis: Heparin due to DORYS, switch to Lovenox if renal function normalizes CODE STATUS: Full code Disposition: MSO Diet: Regular (2) Influenza A: (3) Hyperlipidemia: Admission and Anticipated Discharge Date Admission Date: November 30, 2024 Subjective patient seen and examined, feels slightly better, but still coughing Review of Systems Review of Systems: All systems reviewed are negative, apart from the ones contained in the history. Physical Exam Physical Exam: The patient is awake, alert and oriented 3, well developed and well nourished, normocephalic and atraumatic, lying in bed and in no acute distress. HEENT--PERRL, EOMI, mucous membranes and oropharynx mildly dry Neck--supple. No JVD. No bruits. Thyroid normal, trachea midline, no adenopathy. Heart--normal S1 and S2. No murmurs, rubs or gallops. Lungs--reduced air entry on auscultation Abdomen--normal bowel sounds and soft. Extremities--no cyanosis or clubbing. No edema. Dermatologic--normal skin turgor, normal color, no abnormal lymph nodes, no rash. Neurologic--cranial nerves II through XII grossly intact. Rheumatologic--normal range of motion. Psychiatric--normal affect. Results & Data Results & Data Vital Signs (Past 12 Hours) Vital Signs Temp Pulse Resp BP Pulse Ox O2 Del Method O2 Flow Rate 12/01/24 10:44 97.7 F 74 18 125/63 94 Nasal Cannula 2 12/01/24 08:20 97.5 F L 81 17 134/72 92 Room Air 12/01/24 03:10 98.2 F 82 18 140/70 93 Nasal Cannula PG Care Time/CCT Total # of Minutes Spent Total Time Spent with Patient: Total time spent is greater than 50% in coordination of care (as documented) at patient's floor/unit and/or counseling patient: Coding Level of Care Code 93718 SUB INP/OBS CARE 2/35MIN Diagnoses Multifocal pneumonia J18.9 Influenza A J10.1 Hyperlipidemia E78.5 Time Spent (min) 35
[2024-12-01] MEDS: DOXYCYCLINE HYCLATE 100 MG in DEXTROSE 5% MINI-B 100 ML IV SCH (12:46)
--- NOTE | 2024-12-01 14:26 | Electrocardiogram Report ---
Test Reason : Blood Pressure : */* mmHG Vent. Rate : 97 BPM Atrial Rate : 97 BPM P-R Int : 126 ms QRS Dur : 78 ms QT Int : 322 ms P-R-T Axes : 52 87 12 degrees QTcB Int : 408 ms Normal sinus rhythm Nonspecific ST abnormality Abnormal ECG No previous ECGs available Confirmed by Xander Mustafa ([id number]) on 12/01/2024 2:26:29 PM Referred By: REFERRED SELF Confirmed By: Xander Mustafa
[2024-12-01] MEDS: cefTRIAXone SODIUM 2,000 MG/50 ML BAG IV SCH (17:36)
[2024-12-02 07:54] LABS: Hematocrit (blood only) 33.5 % (37.0-47.0); Hemoglobin 10.9 g/dl (12.0-16.0); Mean Corpuscular Hgb Conc 32.5 g/dL (32.0-36.0); Mean Corpuscular Volume 95.2 fL (80.0-100.0); Mean Platelet Volume 10.5 fL (9.4-12.4); Platelet Count 181 K/uL (130-400); RDW Standard Deviation 52.5 fL (36.4-46.3); Red Blood Count 3.52 M/uL (4.20-5.40); White Blood Count 6.79 K/ul (4.8-10.8)
[2024-12-02 08:15] LABS: BUN Creatinine Ratio 18.5 (10-20); Calcium 9.1 mg/dl (8.6-10.3); Potassium 3.7 mmol/L (3.5-5.1)
[2024-12-02 10:26] LABS: Basophils # (auto) 0.01 K/uL (0.00-0.20); Basophils % (auto) 0.1 %; Eosinophils # (auto) 0.01 K/uL (0.00-0.50); Eosinophils % (auto) 0.1 %; Immature Granulocytes # (auto) 0.04 K/uL (0.01-0.20); Immature Granulocytes % (auto) 0.6 %; Lymphocytes # (auto) 0.76 K/uL (1.20-3.40); Lymphocytes % (auto) 11.2 %; Monocytes # (auto) 0.31 K/uL (0.11-0.59); Monocytes % (auto) 4.6 %; Neutrophils # (auto) 5.66 K/uL (1.40-6.50); Neutrophils % (auto) 83.4 %
--- NOTE | 2024-12-02 11:32 | Hospitalist Progress Note ---
Date of Service December 02, 2024 Assessment & Plan (1) Multifocal pneumonia: Plan: Gladys is a 69-year-old female who is admitted for multifocal pneumonia. She has had 3 URIs in the last 2 months, however most recent course had sudden worsening to 3 days ago no suspicious for superimposed bacterial pneumonia on top of flu A. She has a marked elevation in her CRP and procalcitonin and while on admission is not toxic or hypotensive appears fatigued and ill. Multifocal pneumonia -secondary Strep PNA and flu A Chest x-ray: Right worse than left pneumonia. Small right pleural effusion. Multiple airspace opacities for which 4 to 6-week follow-up after treatment is recommended ensure resolution Procalcitonin 17.8, flu a positive, CRP 36 -Biofire positive for Infu A and Strep PNA -MRSA nares was negative, discontinued vancomycin -Continue Ceftriaxone and Doxycycline Continue incentive spirometry DORYS Baseline creatinine approximately 0.80.97 Creatinine 1.35 on admission Patient's received 2 L NSS Resolved Encourage p.o. Chronic stable issues: Anxiety/depression: Continue Celexa DVT prophylaxis: Heparin CODE STATUS: Full code Diet: Regular Likely will switch to p.o. antibiotics tomorrow. (2) Influenza A: (3) Hyperlipidemia: Admission and Anticipated Discharge Date Admission Date: November 30, 2024 Subjective Patient was seen and examined at 11:10 AM. She says that she is feeling better overall. Still coughing quite a bit. Less short of breath. Still very weak. Appetite improving. Review of Systems Review of Systems: All systems reviewed & are unremarkable except as noted in Subjective Physical Exam Physical Exam: General: Awake, conversant Heart: S1, S2/regular rate and rhythm, no murmur rubs or gallops Lungs: Bilateral crackles. Normal effort Abdomen: Soft/nontender/nondistended. No hepatosplenomegaly Extremities: No clubbing/cyanosis. No edema Behavior: Appropriate, cooperative Results & Data Results & Data Vital Signs (Past 12 Hours) Vital Signs Temp Pulse Pulse Resp BP Pulse Ox O2 Del Method 12/02/24 07:22 36.7 C 61 17 133/61 94 Nasal Cannula 12/02/24 03:05 36.7 C 76 16 139/76 93 Room Air O2 Flow Rate 12/02/24 07:22 2 12/02/24 03:05 Laboratory Results Abnormal lab results 12/02/24 Range/Units 06:56 RBC 3.52 L (4.20-5.40) M/uL Hgb 10.9 L (12.0-16.0) g/dl Hct 33.5 L (37.0-47.0) % RDW Std Deviation 52.5 H (36.4-46.3) fL RDW Coeff of Santi 15.0 H (11.5-14.5) % Lymph # (Auto) 0.76 L (1.20-3.40) K/uL Chloride 109 H (98-107) mmol/L PG Care Time/CCT Total # of Minutes Spent Total Time Spent with Patient: Total time spent is greater than 50% in coordination of care (as documented) at patient's floor/unit and/or counseling patient: Coding Level of Care Code 81057 SUB INP/OBS CARE 2/35MIN Diagnoses Multifocal pneumonia J18.9 Influenza A J10.1 Hyperlipidemia E78.5
[2024-12-02] MEDS: COUGH DROP (SUGAR FREE) LOZ 24 LOZ/1 BOX BUCCAL PRN (20:23)
[2024-12-03 06:27] LABS: Basophils # (auto) 0.02 K/uL (0.00-0.20); Basophils % (auto) 0.3 %; Eosinophils # (auto) 0.05 K/uL (0.00-0.50); Eosinophils % (auto) 0.8 %; Hematocrit (blood only) 33.5 % (37.0-47.0); Immature Granulocytes # (auto) 0.22 K/uL (0.01-0.20); Immature Granulocytes % (auto) 3.3 %; Lymphocytes # (auto) 1.14 K/uL (1.20-3.40); Lymphocytes % (auto) 17.3 %; Mean Corpuscular Hemoglobin 30.8 pg (25.0-34.0); Mean Corpuscular Hgb Conc 32.8 g/dL (32.0-36.0); Mean Corpuscular Volume 93.8 fL (80.0-100.0); Mean Platelet Volume 10.1 fL (9.4-12.4); Monocytes # (auto) 0.67 K/uL (0.11-0.59); Monocytes % (auto) 10.2 %; Neutrophils # (auto) 4.49 K/uL (1.40-6.50); Neutrophils % (auto) 68.1 %; Platelet Count 246 K/uL (130-400); RDW Coefficient of Variation 14.9 % (11.5-14.5); RDW Standard Deviation 52.1 fL (36.4-46.3); Red Blood Count 3.57 M/uL (4.20-5.40); White Blood Count 6.59 K/ul (4.8-10.8)
[2024-12-03 06:42] LABS: Calcium 8.9 mg/dl (8.6-10.3); Creatinine Clr Calc Pharmacy 67.3 ml/min; Potassium 3.5 mmol/L (3.5-5.1)
[2024-12-03 08:02] VITALS: BP 123/84; TEMP 98.8
[2024-12-03] MEDS: DOXYCYCLINE HYCLATE 100 MG CAP PO SCH (08:40)
[2024-12-03] MEDS: cephALEXin 500 MG CAP PO SCH (08:40)
--- NOTE | 2024-12-03 11:07 | Discharge Summary ---
Date of Service December 03, 2024 Admission HPI Per Admitting Provider 3 URIs in the last 2 months 1st was 2 months ago. Improved after doxycycline 2nd was amonth ago, improved without abx Current episode worse last 2-3 days and she has a temperature/fever and sore throat for the first time. +thick green sputum production last 2 days No night sweats +dyspnea +sinus congestion no nausea/vomiting/diarrhea Decongestants OTC have helped a little Medical History: Reviewed Medications: Reviewed Surgical History: Reviewed Family history: Reviewed Allergies: Reviewed Social History: No tobacco use. No etoh use Code Status:Surrogate DM would be Cristian. Full Code Admission Exam Per Admitting Provider General: A&Ox3. NAD. Cooperative. Appears fatigued and ill but nontoxic HEENT: Atraumatic, normocephalic. Vision/hearing intact Pulm: Diffusely coarse. Symmetrical chest rise. No increased work of breathing. No respiratory distress. Cardiac: RRR, -mrg. Radial pulses intact and symmetrical. Abdomen: Soft, nontender Principal Diagnosis Streptococcal multifocal pneumonia Influenza A Acute kidney injury Discharge Exam General: Awake, conversant Heart: S1, S2/regular rate and rhythm, no murmur rubs or gallops Lungs: Bilateral crackles. Normal effort Abdomen: Soft/nontender/nondistended. No hepatosplenomegaly Extremities: No clubbing/cyanosis. No edema Behavior: Appropriate, cooperative Discharge Data Allergies Allergy/AdvReac Type Severity Reaction Status Date / Time No Known Drug Allergies Allergy Verified 11/30/24 14:44 Consultations 11/30/24 18:01 ED Decision to Admit Stat Ordered Studies Chest X-Ray 11/30/24 16:26 Clinical History: Cough Technique: A frontal view of the chest was obtained Findings: There is extensive right lower lobe alveolar consolidation. There are less severe patchy right upper lobe and left lower lobe infiltrates. There is a suspected small right pleural effusion. The heart size is within normal limits. No left pleural effusion or pneumothorax is seen. No fracture is noted. No foreign body is seen Impression: 1. Right worse then left pneumonia 2. Small right pleural effusion Electronically signed by Armando Graf 11-30-2024 4:59 PM Hospital Course (1) Multifocal pneumonia: Gladys is a 69-year-old female who is admitted for multifocal pneumonia. She has had 3 URIs in the last 2 months, however most recent course had sudden worsening to 3 days ago no suspicious for superimposed bacterial pneumonia on top of flu A. She has a marked elevation in her CRP and procalcitonin and while on admission is not toxic or hypotensive appears fatigued and ill. Multifocal pneumonia -secondary Strep PNA and flu A Chest x-ray: Right worse than left pneumonia. Small right pleural effusion. Multiple airspace opacities for which 4 to 6-week follow-up after treatment is recommended ensure resolution Procalcitonin 17.8, flu a positive, CRP 36 -Biofire positive for Infu A and Strep PNA -MRSA nares was negative, discontinued vancomycin -Patient was treated with ceftriaxone and Doxycycline in the hospital, discharged on Keflex and doxycycline p.o. to complete the course Completed two-step test, not requiring oxygen DORYS Baseline creatinine approximately 0.80.97 Creatinine 1.35 on admission Patient's received 2 L NSS Resolved Encourage p.o. Chronic stable issues: Anxiety/depression: Continue Celexa DVT prophylaxis: Heparin CODE STATUS: Full code Diet: Regular Discharge to home today (2) Influenza A: (3) Hyperlipidemia: Total Time Total Time Spent Total Time Spent (In Minutes): 35 Discharge Plan Discharge Items Patient Disposition: Home - Self-Care Reason For Visit: MULTIFOCAL PNA Discharge Diagnosis: Streptococcal multifocal pneumonia Influenza A Acute kidney injury Activity: Resume your previous activity Non-emergency contact: Primary Care Provider Call non-emergency contact if: you have any medication questions and your symptoms worsen Follow-up/Referrals: Livan Laguna DO [Primary Care Provider] - Diet: Heart Healthy Addtl Attending Provider Instructions: Advised to follow-up with PCP in 1 week Pending Studies at Discharge: No Stand-Alone Forms: My [facility] [employer] Medications and DC Order Prescriptions: New cephalexin 500 mg Capsule 500 mg PO BID 4 Days Qty: 8 0RF doxycycline hyclate 100 mg Capsule 100 mg PO BID 4 Days Qty: 8 0RF Continued citalopram 10 mg tablet 10 mg PO QAM Qty: 90 3RF cholecalciferol (vitamin D3) 2,000 unit capsule 2,000 unit PO QAM Qty: 30 ipratropium-albuterol 0.5 mg-3 mg(2.5 mg base)/3 mL solution for nebulization 3 ml inhalation ONCE Qty: 3 0RF calcium 100 mg Capsule 100 mg PO QAM Discharge Orders: Discharge Order (Routine); Ordered 12/03/24 Ordered By: Brian Ingiuez Admission Data Admit Date/Time: 11/30/24 18:57 Attending Provider: Brian Iniguez Admit Provider: Hunter Duarte Primary Care Provider: Livan Laguna Other Providers: Hunter Duarte
[2024-12-03 13:23] VITALS: PULSE 71; RESP 18; O2SAT 90
== END 2024-12-03 13:23 | disposition home or self-care (01) | DRG 871 ==
LOC: ED 16:01 → SUATTDRO 18:57 → 2E 18:57